=== PATIENT | female | born 1985 | race Caucasian/White ===

== ENCOUNTER → 2019-09-14 14:57 | Outpatient (REF) | payer OTHER, SELFPAY | LOC: ANHLAB 14:57 | PROVIDERS: PCP Family Medicine; Visit Provider Surgery Plastic and Reconstructive Surgery | DX: H02.64 Xanthelasma of left upper eyelid (principal) | CPT/HCPCS: 88305 ==

== ENCOUNTER 2020-01-02 09:34 | Outpatient (CLI) | payer OTHER, SELFPAY ==
[2020-01-02 18:54] LABS: SARS-CoV-2 RNA PCR Negative
== END 2020-01-02 09:35 | disposition home or self-care (01) ==
LOC: ANHCOVIDDT 09:34
PROVIDERS: PCP Family Medicine; Visit Provider Obstetrics & Gynecology
DX: Z01.812 Encounter for preprocedural laboratory examination (principal); Z20.828 Contact with and (suspected) exposure to other viral communicable diseases
CPT/HCPCS: 87635; C9803; U0003

== ENCOUNTER 2020-01-05 00:31 | Day surgery (SDC) | payer OTHER, SELFPAY ==
[2020-01-02 10:31] VITALS: BMI 29.2
--- NOTE | 2020-01-03 09:45 | PM.IMHP ---
H&P: HPI History of Present Illness Date/Time: 01/03/20 09:45 Chief complaint: Pelvic Pain Narrative: Norm Mulligan is a 34 year old female who is admitted for diagnostic laparoscopy. She has had continued chronic pelvic pain and dyspareunia. She has pain she is sitting she has intercourse in several she status post hysterectomy and ultrasound shows no obvious adnexal masses. Risks and benefits of this procedure reviewed including but not exclusive of , aspiration pneumonia, bleeding, transfusion, perforation injury to bowel, bladder, ureters, or other internal organs with need for open laparotomy. She received the ACOG handout entitled laparoscopy. She had all questions answered. She asked to proceed Review of Systems Review of Systems: All systems reviewed & are unremarkable except as noted in HPI and below PMFSH Social History Social History Smoking packs per day: 0.5 Smoking cigarettes per day: 10.0 Years smoked: 6 Smoking pack-years: 3.00 Smoking status: Current every day smoker Tobacco type: cigarettes Alcohol intake: never Spiritual care concerns: No Meds Home Medications and Allergies Home Medications Medication Instructions Recorded Confirmed Type No Home Medications 06/21/19 01/02/20 History Allergies Allergy/AdvReac Type Severity Reaction Status Date / Time codeine Allergy FLUSING Verified 01/02/20 10:32 Exam Const: General: no acute distress Eyes: General: appearance normal, both eyes and all related structures Neck: Neck: supple and no JVD Thyroid: thyroid normal Resp: Effort & Inspection: normal respiratory effort Auscultation: clear to auscultation bilaterally Cardio: Rate: regular rate Rhythm: regular rhythm GI: Inspection: non-distended GI Palp: Yes Soft to palpation, No Tenderness to palpation present (GI) and No Guarding due to palpation present (GI) Auscultation: normal bowel sounds : General: Yes bladder normal to inspection External Female Exam: normal external appearance Speculum Exam - Vagina: tenderness Speculum Exam - Cervix: Cervix absent Bimanual exam- vagina & uterus: uterus absent Bimanual Exam- Adnexa, other: tender Skin: General skin exam: no rashes or lesions noted Extrem: General: normal to inspection and no edema Psych: Mental Status: mental status grossly normal Affect: normal affect Assessment and Plan Additional Plan impression: Pelvic pain Plan: Diagnostic laparoscopy
[2020-01-05] VITALS (7 sets, daily range): BP systolic 117–124; BP diastolic 67–86; PULSE 83–130; RESP 14–21; TEMP 36.5–37.2; O2SAT 98–100
--- NOTE | 2020-01-05 06:30 | WPDHPUPDATE1 ---
History and Physical Update Update Date/Time: 01/05/20 06:30 History and Physical has been reviewed, including an updated exam of the patient. There are NO changes in the patient's condition. Risks, benefits, and alternatives have been discussed and questions answered. Patient agrees to proceed with procedure.
[2020-01-05] MEDS: LACTATED RINGERS 1,000 ML 30 ML IV CONT ×2 (08:51→10:44)
[2020-01-05] MEDS: ACETAMINOPHEN 500 MG TABLET 1000 MG PO (08:52)
[2020-01-05] MEDS: KETOROLAC 15 MG/ML VIAL (*BKC) IV PUSH (08:53)
--- NOTE | 2020-01-05 09:45 | P.PNAN_ITS ---
Anes - Initial Pre Proc Eval Procedure: Operation Date: 01/05/20 11:00 Proposed Procedures p Diagnostic Laparoscopy - Luis Garcia MD Date/Time: 01/05/20 09:45 Surgeon: Luis Garcia MD Pre Op Diagnosis: Pelvic Pain Patient Data Age: 34 Gender: F Height: 5 ft 5 in Weight: 79.83 kg Last Vital Signs Temp 98.9 F 01/05/20 08:54 Pulse 84 01/05/20 08:54 Resp 14 01/05/20 08:54 BP 121/80 01/05/20 08:54 Pulse Ox 100 01/05/20 08:54 Allergies Allergy/AdvReac Type Severity Reaction Status Date / Time codeine Allergy Severe Rash Verified 01/05/20 08:29 Home Medications Medication Instructions Recorded Confirmed Type hydrocodone-acetaminophen [[place]] 1 tablet PO Q4H PRN #20 tablet 01/05/20 Rx Patient hx anesthesia problems: none Family hx anesthesia problems: none PMFSH Past Medical History Medical History (Updated 01/05/20 @ 09:45 by Mango Ho MD) Healthy adult Social History Social History Smoking packs per day: 0.5 Smoking cigarettes per day: 10.0 Years smoked: 6 Smoking pack-years: 3.00 Smoking status: Current every day smoker Tobacco type: cigarettes Alcohol intake: never Spiritual care concerns: No Anes - Eval Final PreProcedure Day of Procedure 01/05/20 09:45 Patient weight: normal Heart: regular rate and rhythm Lungs: clear to auscultation Airway: Mallampati scale class II Neurological: alert and oriented Last oral intake: >/= 8 hours ASA classification: II Emergent: no Anesthetic plan: proceed Anesthesia type and monitoring: general ETT and standard monitoring Informed Consent: The patient's anesthetic plan and its attendant risks and benefits were discussed with the patient/family/POA. Questions were solicited and answers provided to the satisfaction of the patient/family/POA.
--- NOTE | 2020-01-05 10:35 | PM.PROC ---
Procedure Note - Detailed Date of procedure: 01/05/20 Pre-op diagnosis: Pelvic Pain Surgeon: Luis Garcia MD Postop diagnosis: Pelvic pain/ endometriosis/ pelvic adhesions Procedure: Laparoscopy/ destruction of endometriosis / lysis of adhesions Anesthesia: General endotracheal EBL: 5Cc Complications: None Findings: Absent uterus left ovary and tube absent right tube. Endometrial implants along the bladder edge and cul-de-sac. Adhesions from the colon to the left lateral sidewall Description of procedure: The patient was prepped draped in normal sterile fashion placed in the dorsal lithotomy position. Under excellent general trach anesthesia a sponge stick was placed in the vagina and the bladder drained of clear urine. Gloves were changed An infraumbilical incision was made. The Veress needle was passed in the abdomen. The abdomen was filled with CO2 gas [id number]. The 5mm trocar was advanced directly into the abdomen under direct visualization. No injury seen the patient was placed in Trendelenburg. A suprapubic incision was made in the 5mm trocar advanced under direct visualization assuring no injury. The right ovary appeared within normal limits the uterus and left ovary and tube were surgically absent. Adhesions were seen from the colon to the left lateral sidewall. These were sharply dissected freed. Areas of endometriosis were photo documented along the bladder and the uterus sacral ligaments. These were point cauterized at 35 w per 2nd with excellent desiccation. Irrigation was taken until clear. The raw surface areas on the left where the bowel was sharply dissected was covered with Interceed. Small amount of fluid was left to help the Interceed. No other abnormalities were seen. The lower site removed. The gas removed from abdomen. The upper site was removed. Incisions were closed with 4 O Monocryl. The patient was awakened. She went to speak recovery in satisfactory condition. All sponge, needle, instrument counts were correct. There were no immediate complications
== END 2020-01-05 12:26 | disposition home or self-care (01) ==
PROVIDERS: PCP Family Medicine; Visit Provider Obstetrics & Gynecology
PROC: (CPT 49320; principal; 2020-01-05 11:00)
DX: R10.2 Pelvic and perineal pain (principal); N80.0 Endometriosis of uterus; N80.8 Other endometriosis; N73.6 Female pelvic peritoneal adhesions (postinfective)
CPT/HCPCS: 58662; 36415; 86850; 86900; 86901; A9270; J0330; J1100; J1885; J2250; J2405; J2704; J3010; J7120

== ENCOUNTER → 2020-09-26 08:00 | Outpatient (REF) | payer OTHER, SELFPAY | LOC: ANHLAB 08:00 | PROVIDERS: PCP Family Medicine; Visit Provider Surgery Plastic and Reconstructive Surgery | DX: E75.5 Other lipid storage disorders (principal); H02.64 Xanthelasma of left upper eyelid | CPT/HCPCS: 88305 ==

== ENCOUNTER 2021-04-01 09:32 | Outpatient (CLI) | payer OTHER, SELFPAY | END 2021-04-01 09:33 | disposition home or self-care (01) | LOC: ANHSURGERY 09:37 | PROVIDERS: PCP Family Medicine; Visit Provider Obstetrics & Gynecology | DX: N83.201 Unspecified ovarian cyst, right side (principal); Z01.818 Encounter for other preprocedural examination | CPT/HCPCS: 36415; 86850; 86900; 86901 ==

== ENCOUNTER 2021-04-04 01:59 | Day surgery (SDC) | payer OTHER, SELFPAY ==
[2021-03-28 15:34] VITALS: BMI 28.6
--- NOTE | 2021-03-28 15:46 | PC.NURSE ---
Report to the Outpatient Waiting Room, entrance under the green pavilion located off [facility], at time 8:30AM__ on date _04/04/21 . OR Time: __10:30AM . - You and your visitor will be asked a series of questions to screen for COVID 19 for your protection. - A mask is required within the hospital. - Only one visitor is allowed at this time. Patient visitors will be guided where to wait when not with patient. Preoperative COVID Testing Requirements: No COVID Test needed if: (proof is required; if not received patient will have Rapid Test prior to entry) - Patient has received COVID Vaccine at least 14 days prior to procedure date or - Patient has positive COVID test result within last 90 days of surgery date. COVID Test needed if above criteria is not met If not COVID vaccinated a COVID test must be conducted within 72 hours of surgery and patient is asked to isolate self from time of testing until procedure. You will go to the [facility] for your COVID testing. The [facility] is located at the corner of [address] [facility]. COVID TESTING 04/01/21 @ 0935 You will only be called if COVID results are positive and your surgeon may reschedule your elective surgery date. Patients may have clear liquids (water, carbonated beverages, clear teas, apple juice) until 3 hours prior to surgery with a maximum of 20 ounces. - No food from midnight until time of surgery - Infants may have breast milk until 4 hours before surgery, formula 6 hours prior to surgery. - Children will be allowed to drink immediately following surgery. If applicable, please bring a bottle or sippy cup to assist with drinking. Juice, water, soda, and popsicles are readily available. For infants on formula, please bring formula the day of surgery. Pacifiers are allowed. Take the following medications with a SIP of water the morning of surgery: NONE Medications to discontinue per physician NONE Date to take last dose Please no make-up, nail croatian, hairspray, perfume, deodorant, or body powder the day of surgery. No jewelry (including any body piercings) or valuables the day of surgery, leave them at home. Please take a shower or bath the night before, or the morning of, surgery with an antibacterial soap. Wear comfortable, loose fitting clothing. Children are encouraged to wear pajamas. - Jewelry must be removed prior to entering the operating room. Rings and piercings that are not removed may be cut off. - The hospital will not accept responsibility for valuables. - Please leave all valuables, including medications, at home the day of surgery. If you are going home after surgery, a licensed ice cream truck driver must drive you home. - NO public transportation without another adult. - We recommend that an adult stay with you for 24 hours following discharge. - We also recommend that you do not drive, make important decision, drink alcoholic beverages, or take any drugs that were not prescribed by your health care provider for at least 24 hours after your discharge time. For Pediatric surgeries, we recommend two adults accompany the child home (only one inside the building at this time). Follow any additional instructions given to you from your surgeon. Telephone instructions given to ___PATIENT and asked if any additional questions and then verbalized understanding. Patient advised to call surgeon office or pre surgery nurse liaison [phone] if any additional questions.
--- NOTE | 2021-04-02 09:50 | PM.IMHP ---
H&P: HPI History of Present Illness Date/Time: 04/02/21 09:50 This is a 35-year-old 2 para 2 who is admitted for laparoscopy and right salpingo-oophorectomy. She has had pelvic pain discomfort and dyspareunia. She has had the left ovary removed before the past and she understands this will make her permanently menopausal. Risks and benefits reviewed including but not exclusive of , aspiration pneumonia, bleeding, transfusion, perforation injury to bowel, bladder, ureters, or other internal organs with the need for open laparotomy. She received the ACOG handout entitled laparoscopy. She had all questions answered. The changes medical with menopause were reviewed in great detail including psychologic and physiologic changes. She had all answers given and asked to proceed Chief Complaint: Pain and right ovarian cyst Review of Systems Review of Systems: All systems reviewed & are unremarkable except as noted in HPI and below PMFSH Past Medical History Medical History Healthy adult Surgical History Surgical History History of delivery Social History Social History Smoking packs per day: 0.5 Smoking cigarettes per day: 10.0 Years smoked: 10 Smoking pack-years: 5.00 Smoking status: Current every day smoker Tobacco type: cigarettes Alcohol intake: never Alcohol use details: SOCIALLY IN PAST Substance use: never Additional living arrangements comments: [facility] Spiritual care concerns: No Meds Home Medications and Allergies Home Medications Medication Instructions Recorded Confirmed Type No Home Medications 03/28/21 03/28/21 History Allergies Allergy/AdvReac Type Severity Reaction Status Date / Time hydrocodone AdvReac Nausea and Verified 03/28/21 15:33 Vomiting Exam Const: General: no acute distress Eyes: General: appearance normal, both eyes and all related structures Neck: Neck: supple and no JVD Thyroid: thyroid normal Resp: Effort & Inspection: normal respiratory effort Auscultation: clear to auscultation bilaterally Cardio: Rate: regular rate Rhythm: regular rhythm GI: Inspection: non-distended GI Palp: Yes Soft to palpation, No Tenderness to palpation present (GI) and No Guarding due to palpation present (GI) Auscultation: normal bowel sounds : External Female Exam: normal external appearance Speculum Exam - Vagina: normal appearance of the vagina Speculum Exam - Cervix: Cervix absent Bimanual exam- vagina & uterus: uterus absent Bimanual Exam- Adnexa, other: Adnexal mass present on the right tender Skin: General skin exam: no rashes or lesions noted Extrem: General: normal to inspection and no edema Psych: Mental Status: mental status grossly normal Affect: normal affect Assessment and Plan Additional Plan Impression: Complex right ovarian cyst in a patient status post hysterectomy and left salpingo-oophorectomy Plan: Laparoscopic right salpingo-oophorectomy
--- NOTE | 2021-04-04 07:11 | WPDHPUPDATE1 ---
History and Physical Update Update Date/Time: 04/04/21 07:11 History and Physical has been reviewed, including an updated exam of the patient. There are NO changes in the patient's condition. Risks, benefits, and alternatives have been discussed and questions answered. Patient agrees to proceed with procedure.
[2021-04-04 08:40] VITALS: BP 122/70; PULSE 122; RESP 16; TEMP 36.4; O2SAT 97
--- NOTE | 2021-04-04 09:02 | P.PNAN_ITS ---
Anes - Initial Pre Proc Eval Procedure: Operation Date: 04/04/21 10:30 Proposed Procedures p Laparoscopic Right Salpingo-Oophorectomy - Luis Garcia MD Date/Time: 04/04/21 09:02 Surgeon: Luis Garcia MD Pre Op Diagnosis: right ovarian cyst Patient Data Age: 35 Gender: F Height: 1.65 m Weight: 80.2 kg Last Vital Signs Temp 36.4 C L 04/04/21 08:40 Pulse 122 H 04/04/21 08:40 Resp 16 04/04/21 08:40 BP 122/70 04/04/21 08:40 Pulse Ox 97 04/04/21 08:40 Allergies Allergy/AdvReac Type Severity Reaction Status Date / Time hydrocodone AdvReac Nausea and Verified 04/04/21 08:43 Vomiting Home Medications Medication Instructions Recorded Confirmed Type oxycodone-acetaminophen [Percocet] 1 tablet PO Q4H PRN #20 tablet 04/04/21 Rx Patient hx anesthesia problems: none Family hx anesthesia problems: none Results Review: All pre-operative results and documents have been reviewed as part of the pre-operative evaluation. [facility] Past Medical History Medical History Obesity Smoker Surgical History Surgical History (Updated 04/04/21 @ 09:02 by Luis Zhao MD) H/O: hysterectomy History of delivery Social History Social History Smoking packs per day: 0.5 Smoking cigarettes per day: 10.0 Years smoked: 10 Smoking pack-years: 5.00 Smoking status: Current every day smoker Tobacco type: cigarettes Alcohol intake: never Alcohol use details: SOCIALLY IN PAST Substance use: never Living arrangements: with family Additional living arrangements comments: HUSB Spiritual care concerns: No Anes - Eval Final PreProcedure Day of Procedure 04/04/21 09:02 Patient weight: obese Heart: regular rate and rhythm Lungs: clear to auscultation Airway: Mallampati scale class II Neurological: alert and oriented Last oral intake: >/= 8 hours ASA classification: II Emergent: no Anesthetic plan: proceed Anesthesia type and monitoring: general ETT and standard monitoring Results Review: All pre-operative results and documents have been reviewed as part of the pre-operative evaluation. Informed Consent: The patient's anesthetic plan and its attendant risks and benefits were discussed with the patient/family/POA. Questions were solicited and answers provided to the satisfaction of the patient/family/POA.
[2021-04-04] MEDS: ACETAMINOPHEN 500 MG TABLET 1000 MG PO (09:10)
[2021-04-04] MEDS: SCOPOLAMINE 1.5 MG PATCH TRANSDERM (09:11)
[2021-04-04] MEDS: LACTATED RINGERS 1,000 ML 30 ML IV CONT ×2 (09:27→11:18)
[2021-04-04] MEDS: KETOROLAC 15 MG/ML VIAL (*BKC) IV PUSH (09:28)
--- NOTE | 2021-04-04 11:12 | W.PM.PROC2 ---
Procedure Note - Detailed Date of Procedure 04/04/21 Pre-op Diagnosis right ovarian cyst Post-op Diagnosis same Procedure Performed Laparoscopic right salpingo-oophorectomy and destruction of endometriosis lysis of adhesions Surgeon Luis Garcia MD Anesthesia general Indications 35-year-old status post hysterectomy and left salpingo-oophorectomy admitted for laparoscopy and right salpingo-oophorectomy secondary complex ovarian cyst and pain Findings Absent left ovary and tube absent uterus complex right ovary and tube Description of Procedure The patient was prepped draped in the normal sterile fashion placed in the dorsal lithotomy position. Under excellent general trach anesthesia weighted speculum placed in posterior fornix of vagina and the sponge stick placed in the vagina the bladder drained of about 350cc of clear urine the weighted speculum was removed. Gloves were changed An infraumbilical incision made the Veress needle passed in the abdomen abdomen filled with CO2 gas to 15mm Hg. The 5mm trocar advanced in the abdomen downside visualized no injury seen. Patient placed in Trendelenburg and a suprapubic incision made. The 5mm trocar advanced under direct visualization assuring no injury. A right lower quadrant incision made the 10mm trocar advanced under direct visualization. Complex right ovarian cyst was seen pelvic adhesions were seen and these were sharply dissected using sharp dissection grasping and port placing on stretch. Once this was clear the infundibulopelvic structure on the right was clamped, burned, cut and the ovary and tube placed in an Endo-Catch removed through the right lower quadrant. Small areas of endometriosis were seen and powder burn spots photo documentation taken prior these were point cauterized at 35 w per 2nd. Irrigation undertaken to clear. Photo documentation of the appendix and gallbladder were undertaken and the lower sites removed. The gas removed from the abdomen the incisions closed with 4 Monocryl and glue. The patient was awakened went recovery in satisfactory condition. All sponge, needle, instrument counts were correct Estimated Blood Loss 5 Drains No Packing No Pathology yes Complications No immediate complications Condition stable Disposition PACU
[2021-04-04 11:18] VITALS: BP 104/73; PULSE 106; RESP 16; TEMP 36.3; O2SAT 100
[2021-04-04 11:33] VITALS: BP 113/67; PULSE 92; RESP 15; O2SAT 100
[2021-04-04 11:46] VITALS: BP 112/66; PULSE 79; RESP 12; O2SAT 100
[2021-04-04 11:56] VITALS: BP 119/67; PULSE 82; RESP 12
[2021-04-04 12:26] VITALS: BP 108/67; PULSE 84; RESP 12
== END 2021-04-04 12:30 | disposition home or self-care (01) ==
PROVIDERS: PCP Family Medicine; Visit Provider Obstetrics & Gynecology
PROC: (CPT 49320; principal; 2021-04-04 10:30)
DX: N83.01 Follicular cyst of right ovary (principal); N80.3 Endometriosis of pelvic peritoneum; Z90.710 Acquired absence of both cervix and uterus; F17.210 Nicotine dependence, cigarettes, uncomplicated; R10.2 Pelvic and perineal pain; N94.10 Unspecified dyspareunia
CPT/HCPCS: 58661; 58662; 88305; A9270; J1885; J2250; J3010; J7120

== ENCOUNTER 2023-09-22 08:54 | Outpatient (CLI) | payer OTHER, SELFPAY ==
--- NOTE | 2023-09-22 11:15 | NEURO_ITS ---
Impression: # Complains of pain/numbness in upper extremities. Non-diabetic. # Left ulnar neuropathy across the elbow. # No Carpal Tunnel Syndrome. # Normal needle/EMG exam. # Note patient does have ulnar to median cross innervation. Nerve Conduction Studies Anti Sensory Summary Table Stim Site NR Peak (ms) P-T Amp (?V) Site1 Site2 Delta-P (ms) Dist (cm) Maverick (m/s) Left Median Anti Sensory (2-3nd Digit) Wrist 2.7 65.4 Wrist 2-3nd Digit 2.7 14.0 52 Wrist 2.8 82.6 Wrist 2-3nd Digit 2.7 14.0 52 Right Median Anti Sensory (2-3nd Digit) Wrist 2.9 78.2 Wrist 2-3nd Digit 2.9 14.0 48 Wrist 2.7 80.0 Wrist 2-3nd Digit 2.9 14.0 48 Left Radial Anti Sensory (Base 1st Digit) Wrist 1.8 45.1 Wrist Base 1st Digit 1.8 0.0 Right Radial Anti Sensory (Base 1st Digit) Wrist 2.2 24.3 Wrist Base 1st Digit 2.2 0.0 Left Ulnar Anti Sensory (5th Digit) Wrist 2.7 67.9 Wrist 5th Digit 2.7 14.0 52 Right Ulnar Anti Sensory (5th Digit) Wrist 2.7 49.4 Wrist 5th Digit 2.7 14.0 52 Motor Summary Table Stim Site NR Onset (ms) O-P Amp (mV) Site1 Site2 Delta-0 (ms) Dist (cm) Maverick (m/s) Left Median Motor (Abd Poll Brev) Wrist 2.9 4.6 Elbow Wrist 5.1 30.0 59 Elbow 8.0 2.0 Right Median Motor (Abd Poll Brev) Wrist 3.1 5.2 Elbow Wrist 5.3 31.0 58 Elbow 8.4 3.1 Left Ulnar Motor (Abd Dig Minimi) Wrist 2.6 6.1 A Elbow Wrist 5.7 29.0 51 A Elbow 8.3 5.9 B Elbow Wrist 4.1 24.0 59 B Elbow 6.7 5.5 Right Ulnar Motor (Abd Dig Minimi) Wrist 2.5 7.5 A Elbow Wrist 5.2 31.0 60 A Elbow 7.7 6.8 F Wave Studies NR F-Lat (ms) L-R F-Lat (ms) Left Median (Mrkrs) (Abd Poll Brev) 26.64 0.16 Right Median (Mrkrs) (Abd Poll Brev) 26.80 0.16 Left Ulnar (Mrkrs) (Abd Dig Min) 28.09 1.02 Right Ulnar (Mrkrs) (Abd Dig Min) 27.08 1.02 EMG Side Muscle Nerve Root Ins Act Fibs Amp Dur Recrt Comment Right 1stDorInt Ulnar C8-T1 Nml Nml Nml Nml Nml Right Ext Indicis Radial (Post Int) C7-8 Nml Nml Nml Nml Nml Right Ext Digitorum Radial (Post Int) C7-8 Nml Nml Nml Nml Nml Right BrachioRad Radial C5-6 Nml Nml Nml Nml Nml Right PronatorTeres Median C6-7 Nml Nml Nml Nml Nml Right Abd Poll Brev Median C8-T1 Nml Nml Nml Nml Nml Right ABD Dig Min Ulnar C8-T1 Nml Nml Nml Nml Nml Left 1stDorInt Ulnar C8-T1 Nml Nml Nml Nml Nml Left Ext Indicis Radial (Post Int) C7-8 Nml Nml Nml Nml Nml Left Ext Digitorum Radial (Post Int) C7-8 Nml Nml Nml Nml Nml Left BrachioRad Radial C5-6 Nml Nml Nml Nml Nml Left PronatorTeres Median C6-7 Nml Nml Nml Nml Nml Left Abd Poll Brev Median C8-T1 Nml Nml Nml Nml Nml Left ABD Dig Min Ulnar C8-T1 Nml Nml Nml Nml Nml MTDD
== END 2023-09-22 08:55 | disposition home or self-care (01) ==
LOC: ANHNEURO 08:55
PROVIDERS: PCP Family Medicine; Visit Provider Orthopaedic Surgery
DX: G56.22 Lesion of ulnar nerve, left upper limb (principal)
CPT/HCPCS: 95886; 95911

== ENCOUNTER 2024-01-05 00:52 | Day surgery (SDC) | payer OTHER, SELFPAY ==
[2023-12-29 15:19] VITALS: BMI 31.4
--- NOTE | 2023-12-29 15:28 | PC.NURSE ---
Addendum entered by Goldy Srivastava RN 12/30/23 14:44: Arrive at 0830 for a 1030 surgery. Original Note: Report to the Outpatient Waiting Room, entrance under the green pavilion located off [facility], at 1230 on 01/05/24. Planned Procedure Time: 1030. Time changes happen often and if your time is changed the preop area will call you the afternoon before. - You and your visitor will be asked to self-screen and do not enter if you have any COVID symptoms. - A mask is optional within the hospital at this time. Patients may have clear liquids (water, carbonated beverages, clear teas, apple juice) until 3 hours prior to surgery with a maximum of 20 ounces. - No food from midnight until time of surgery Take the following medications with a SIP of water the morning of surgery: n/a DO NOT STOP ANY OF YOUR OTHER PRESCRIPTION MEDICATIONS PRIOR TO SURGERY ?EXCEPT THE FOLLOWING Medications to discontinue per physician n/a Date to take last dose n/a Please no make-up, nail zambian, hairspray, perfume, deodorant, or body powder the day of surgery. No jewelry (including any body piercings) or valuables the day of surgery, leave them at home. Please take a shower or bath the night before, or the morning of, surgery with an antibacterial soap. Wear comfortable, loose fitting clothing. - Jewelry must be removed prior to entering the operating room. Rings and piercings that are not removed may be cut off. - The hospital will not accept responsibility for valuables. - Please leave all valuables, including medications, at home the day of surgery. If you are going home after surgery, a licensed motor vehicle escort driver must drive you home. - NO public transportation without another adult if you receive anesthesia. - We recommend that an adult stay with you for 24 hours following discharge. - We also recommend that you do not drive, make important decision, drink alcoholic beverages, or take any drugs that were not prescribed by your health care provider for at least 24 hours after your discharge time. Follow any additional instructions given to you from your surgeon. If you or anyone in your household have experienced Covid symptoms in the past week, please notify your surgeon or the nurse liaison at the phone number below for possible testing. Telephone instructions given to patient and asked if any additional questions and then verbalized understanding. Patient advised to call surgeon office or pre surgery nurse liaison [phone] if any additional questions.
--- NOTE | 2024-01-04 07:58 | PM.IMHP ---
H&P: HPI History of Present Illness Date/Time: 01/04/24 07:58 Chief Complaint: Patient presents with tingling in all fingers of her right hand. She has carpal and cubital tunnel syndrome. She would like to consider surgical intervention. Review of Systems Musculoskeletal: Musculoskeletal: Reports arthralgias and Reports joint swelling [facility] Surgical History Surgical History H/O: hysterectomy History of delivery Family History Family History (Updated 11/30/23 @ 08:14 by ZACK Gomez) Father Acute myocardial infarction Mother Acute myocardial infarction Heart disease Social History Social History (Updated 11/30/23 @ 08:15 by ZACK Gomez) Smoking packs per day: 0.5 Smoking cigarettes per day: 10.0 Years smoked: 8 Smoking pack-years: 4.00 Smoking status: Current every day smoker Tobacco type: cigarettes Second hand tobacco smoke exposure: Yes Alcohol intake: never Alcohol use details: SOCIALLY IN PAST Substance use: never Substance use type: does not use Do You Feel Safe in your Home?: Yes Lack of Transportation: No Lack of Food: Never True Current Housing: I Have Housing Concerned About Future Housing: No Difficulty Paying Gas/Electric Bills: No Difficulty Paying for Meds: No Currently Unemployed: No Education: High School Diploma/GED Difficulty w/ Childcare or Family Care: No Living arrangements: with family Additional living arrangements comments: [facility] Occupation/Education: occupation 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 She also has a positive Phalen's the cubital tunnel compression test on the right. She she has numbness and tingling in her hands quite frequently. And has pain with motion. Eyes: General: appearance normal, both eyes and all related structures Neck: Neck: supple Resp: Effort & Inspection: normal respiratory effort Cardio: Rate: regular rate Rhythm: regular rhythm Assessment and Plan Assessment and plan (1) Cubital tunnel syndrome, bilateral: Code(s): G56.23 - Lesion of ulnar nerve, bilateral upper limbs Status: Acute Assessment and Plan: Patient has carpal and cubital tunnel right. She would like to proceed with surgical intervention. She has failed conservative treatment he would like surgical release. She understands it's not 100% effective. I discussed risks benefits limitations and alternatives with the patient in detail she would like to proceed will proceed per her request. (2) Carpal tunnel syndrome of right wrist: Code(s): G56.01 - Carpal tunnel syndrome, right upper limb Status: Acute
--- NOTE | 2024-01-05 08:46 | WPDHPUPDATE1 ---
History and Physical Update Update Date/Time: 01/05/24 08:46 History and Physical has been reviewed, including an updated exam of the patient. There are NO changes in the patient's condition. Risks, benefits, and alternatives have been discussed and questions answered. Patient agrees to proceed with procedure. Patient has decided just to proceed with the cubital tunnel release, Right arm Will NOT do carpal tunnel release as well..
--- NOTE | 2024-01-05 08:53 | WPDANESEPPF ---
Anes - Initial Pre Proc Eval Procedure: Operation Date: 01/05/24 10:30 Proposed Procedures p Right Cubital Tunnel Release - Gary Cummins MD Date/Time: 01/05/24 08:53 Surgeon: Gary Cummins MD Pre Op Diagnosis: Right Cubital Tunnel Syndrome Patient Data Age: 38 Gender: F Height: 1.65 m Weight: 85.73 kg Allergies Allergy/AdvReac Type Severity Reaction Status Date / Time hydrocodone AdvReac Unknown Nausea and Verified 01/05/24 08:57 Vomiting Home Medications Medication Instructions Recorded Confirmed Type estradiol 1 mg/gram (0.1 %) 1 packet transdermal .COMPLEX 08/26/23 12/29/23 History transdermal gel packet Patient hx anesthesia problems: none Family hx anesthesia problems: none Results Review: All pre-operative results and documents have been reviewed as part of the pre-operative evaluation. [facility] Surgical History Surgical History H/O: hysterectomy History of delivery Family History Family History Father Acute myocardial infarction Mother Acute myocardial infarction Heart disease Social History Social History Smoking packs per day: 0.5 Smoking cigarettes per day: 10.0 Years smoked: 8 Smoking pack-years: 4.00 Smoking status: Current every day smoker Tobacco type: cigarettes Second hand tobacco smoke exposure: Yes Alcohol intake: never Alcohol use details: SOCIALLY IN PAST Substance use: never Substance use type: does not use Do You Feel Safe in your Home?: Yes Lack of Transportation: No Lack of Food: Never True Current Housing: I Have Housing Concerned About Future Housing: No Difficulty Paying Gas/Electric Bills: No Difficulty Paying for Meds: No Currently Unemployed: No Education: High School Diploma/GED Difficulty w/ Childcare or Family Care: No Living arrangements: with family Additional living arrangements comments: [place] Occupation/Education: occupation 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[employer] Gender identity (if verbalized by the patient): Female Spiritual care concerns: No Anes - Eval Final PreProcedure Day of Procedure 01/05/24 08:53 Patient weight: overweight Heart: regular rate and rhythm Lungs: clear to auscultation Airway: Mallampati scale class III Neurological: alert and oriented Last oral intake: >/= 8 hours ASA classification: II Emergent: no Anesthetic plan: proceed Anesthesia type and monitoring: general LMA and standard monitoring Results Review: All pre-operative results and documents have been reviewed as part of the pre-operative evaluation. Pt active smoker, 1/2 ppd for several years, smoked at 7 am today. Informed Consent: The patient's anesthetic plan and its attendant risks and benefits were discussed with the patient/family/POA. Questions were solicited and answers provided to the satisfaction of the patient/family/POA.
[2024-01-05] MEDS: ACETAMINOPHEN 500 MG TABLET 1000 MG PO (09:00)
[2024-01-05] MEDS: LACTATED RINGERS 1,000 ML 30 ML IV CONT (09:17)
[2024-01-05] MEDS: KETOROLAC 15 MG/ML VIAL (*BKC) IV PUSH (09:18)
[2024-01-05 09:25] VITALS: BP 126/78; PULSE 85; RESP 16; TEMP 36.5; O2SAT 100
[2024-01-05] MEDS: ceFAZolin 2 GM/D5W 50 ML 2 GM/50 ML BAG IVPB (09:32)
[2024-01-05] MEDS: ceFAZolin SODIUM 1 GM VIAL IRRIGATION (09:56)
--- NOTE | 2024-01-05 10:02 | P.OP_ITS ---
Procedure Note - Detailed Date of Procedure 01/05/24 Pre-op Diagnosis Right Cubital Tunnel Syndrome Post-op Diagnosis Same Procedure Performed Release right cubital tunnel Surgeon Gary Cummins MD Investigation Clerk Maira Anesthesia General Description of Procedure Patient brought to operating room 7. General anesthetic was administered. She was sterilely prepped in the usual manner. Longitudinal incision made just over the cubital tunnel. Dissection carried down to the fascia of the tight cubital tunnel. This was released from the epicondyle throughout the cubital tunnel. At this point the nerve was noted to be free and not compressed. The arm was put through a full range of motion. No subluxation was noted. The wounds irrigated, hemostasis obtained and closed with the 2-0 Vicryl and 3-0 Prolene. A sterile dressing applied patient left the operating was satisfactory condi tion. Estimated Blood Loss 10 Drains No Packing No Pathology None sent Complications No immediate complications Condition Stable Disposition PACU [facility] Billing Surgery - Charge Forward: Surgery Billing ([id number] Cubital Tunnel Release)
[2024-01-05 10:16] VITALS: BP 116/71; PULSE 92; RESP 16; O2SAT 98
--- NOTE | 2024-01-05 10:30 | SUR.PHASEII ---
Per patient she has taken oxycodone in the past with no allergic reaction.
[2024-01-05] MEDS: oxyCODONE HCL (*CRX) 5 MG TAB IR PO (10:35)
[2024-01-05 10:46] VITALS: BP 111/60; PULSE 79; RESP 20
== END 2024-01-05 10:58 | disposition home or self-care (01) ==
PROVIDERS: PCP Family Medicine; Visit Provider Orthopaedic Surgery
PROC: (CPT 64721; principal; 2024-01-05 10:30)
DX: G56.21 Lesion of ulnar nerve, right upper limb (principal); G56.01 Carpal tunnel syndrome, right upper limb; Z98.890 Other specified postprocedural states; F12.90 Cannabis use, unspecified, uncomplicated; Z82.49 Family history of ischemic heart disease and other diseases of the circulatory system
CPT/HCPCS: 64718; A4565; A9270; J0690; J1885; J2250; J2405; J2704; J3010; J7120

== ENCOUNTER 2024-01-19 09:54 | Emergency (ER) | payer OTHER, SELFPAY ==
--- NOTE | ~2024-01-19 | XR_ITS ---
Right elbow Technique: AP, oblique, and lateral views were obtained. Clinical History: Postoperative infection Findings: No acute fracture or dislocation is seen. Osseous alignment is anatomic. Joint spaces are p reserved. There is no displacement of the fat pads, and soft tissues are unremarkable. Impression: Unremarkable radiographs. Reviewed, dictated and finalized at location . Impression: Unremarkable radiographs.
[2024-01-19 10:07] VITALS: BP 116/79; PULSE 85; RESP 17; TEMP 36.8; O2SAT 100
--- NOTE | 2024-01-19 10:17 | ED.UPPEXIN ---
HPI - Extremity Injury (Upper) General Chief Complaint: Extremity Injury, Upper Stated Complaint: ?infected incision Time Seen by Provider: 01/19/24 09:59 History of Present Illness HPI narrative: 38-year-old female presents to the emergency department with concerns for postoperative infection or right elbow. Patient states on 01/05/2024 she underwent release of her cubital tunnel by Dr. Cummins. States she has been healing well until she noticed redness, pain and swelling 2 days ago. States the symptoms worsened which prompted her to come to the ER today. She has or stitches in place and states she is scheduled to see Dr. Cummins tomorrow to get these removed in for follow-up. She denies fever, nausea or vomiting, difficulty with range of motion of her elbow, numbness or paresthesias. Related Data Home Medications Medication Instructions Recorded Confirmed estradiol 1 mg/gram (0.1 %) 1 packet transdermal .COMPLEX 08/26/23 01/05/24 transdermal gel packet Allergies Allergy/AdvReac Type Severity Reaction Status Date / Time hydrocodone AdvReac Unknown Nausea and Verified 01/19/24 10:07 Vomiting Review of Systems Review of Systems: All systems reviewed & are unremarkable except as noted in HPI and below PMFSH Surgical History Surgical History H/O: hysterectomy History of delivery Family History Family History Father Acute myocardial infarction Mother Acute myocardial infarction Heart disease Social History Social History Smoking packs per day: 0.5 Smoking cigarettes per day: 10.0 Years smoked: 8 Smoking pack-years: 4.00 Smoking status: Current every day smoker Tobacco type: cigarettes Second hand tobacco smoke exposure: Yes Alcohol intake: never Alcohol use details: SOCIALLY IN PAST Substance use: never Substance use type: does not use Do You Feel Safe in your Home?: Yes Lack of Transportation: No Lack of Food: Never True Current Housing: I Have Housing Concerned About Future Housing: No Difficulty Paying Gas/Electric Bills: No Difficulty Paying for Meds: No Currently Unemployed: No Education: High School Diploma/GED Difficulty w/ Childcare or Family Care: No Living arrangements: with family Additional living arrangements comments: [facility] Occupation/Education: occupation 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 HEAD: Normocephalic, atraumatic. EYES: PERRLA and EOMI. ENT: Nares clear, no rhinorrhea or epistaxis. Mucous membranes moist. NECK: Supple. CHEST: Clear to auscultation. No respiratory distress. HEART: Regular rate and rhythm. No murmur heard. Normal peripheral pulses. ABDOMEN: Soft, nontender, nondistended, normal active bowel sounds. EXTREMITIES: Normal range of motion. No edema. SKIN: Incision over the right cubital tunnel with a continuous stitch in place. No wound dehiscence or purulence. There is surrounding warmth and erythema to the incision. No induration or fluctuation, no crepitus or vesicles. NEURO: No focal deficits. Alert and oriented x3 Course Vital Signs Vital signs: Vital Signs Temperature 98.3 F 01/19/24 10:07 Pulse Rate 85 01/19/24 10:07 Respiratory Rate 17 01/19/24 10:07 Blood Pressure 116/79 01/19/24 10:07 Pulse Oximetry 100 01/19/24 10:07 Oxygen Delivery Room Air 01/19/24 10:07 Temperature 97.1 F L 01/19/24 11:00 Pulse Rate 74 01/19/24 11:00 Respiratory Rate 16 01/19/24 11:00 Blood Pressure 125/74 01/19/24 11:00 Pulse Oximetry 100 01/19/24 11:00 Oxygen Deliv
[2024-01-19 11:00] VITALS: BP 125/74; PULSE 74; RESP 16; TEMP 36.2; O2SAT 100
[2024-01-19 11:03] LABS: Basophils Percent Auto 0.4 % (0.2-1.2); Eosinophils Absolute Auto 0.1 K/mm3 (0-0.3); Eosinophils Percent Auto 1.7 % (0-4.4); Hematocrit 41.3 % (37.0-47.0); Immature Granulocyte Absolute 0.02 K/mm3 (0.00-0.031); Immature Granulocyte Percent A 0.3 % (0-0.5); Lymphocytes Absolute Auto 1.99 K/mm3 (0.9-3.2); Lymphocytes Percent Auto 27.4 % (18.3-44.2); Mean Corpuscular HGB Conc 33.9 g/dl (32-36); Mean Corpuscular Hemoglobin 32.8 pg (26-34); Mean Corpuscular Volume 96.7 fl (80-100); Mean Platelet Volume 9.8 fl (7.4-10.4); Monocytes Absolute Auto 0.5 K/mm3 (0.1-0.6); Monocytes Percent Auto 6.7 % (2.6-8.5); Neutrophils Absolute Auto 4.6 K/mm3 (1.3-6.7); Neutrophils Percent Auto 63.5 % (45.5-73.1); Platelet Count Result 187 k/mm3 (150-375); Red Blood Count 4.27 M/mm3 (4.2-5.4); Red Cell Distribution Width 12.9 % (11.5-14.5); White Blood Count 7.3 K/mm3 (4.5-10.0)
[2024-01-19 11:18] LABS: Anion Gap 9 mmol/L (4-12); Blood Urea Nitrogen 7 mg/dL (7-17); CRP 0.6 mg/dL (<1.0); Carbon Dioxide 29 mmol/L (22-30); Chloride 104 mmol/L (98-107); Estimated CRCL calculation 114 ml/min; Estimated Glomerular Filt Rate > 60; Glucose 91 mg/dL (65-110); Potassium 3.9 mmol/L (3.4-5.0); Sodium 142 mmol/L (137-145)
[2024-01-19 11:36] LABS: Erythrocyte Sedimentation Rate 16 mm/hr (0-20)
[2024-01-19] MEDS: CEPHALEXIN 500 MG CAPSULE PO (11:50)
[2024-01-19 11:53] VITALS: BP 126/88; PULSE 79; RESP 18; O2SAT 99
[2024-01-19 12:09] VITALS: BP 129/74; PULSE 80; RESP 16; TEMP 36.2; O2SAT 100
== END 2024-01-19 12:10 | disposition home or self-care (01) ==
PROVIDERS: Emergency Provider Physician Assistant; PCP Family Medicine
DX: L03.113 Cellulitis of right upper limb (principal); T81.41XA Infection following a procedure, superficial incisional surgical site, initial encounter; M25.521 Pain in right elbow; G89.18 Other acute postprocedural pain; Z90.710 Acquired absence of both cervix and uterus; F17.210 Nicotine dependence, cigarettes, uncomplicated
CPT/HCPCS: 15853; 36415; 73080; 80048; 85025; 85652; 86140; 99283; A9270

== ENCOUNTER 2024-03-20 01:01 | Day surgery (SDC) | payer OTHER, SELFPAY ==
--- NOTE | 2024-03-09 11:39 | SUR.PREOP ---
Report to the Outpatient Waiting Room, entrance under the green pavilion located off [facility], at time _0600_ on date _03/20/2024_. Planned Procedure Time: _0730_.? Time changes happen often and if your time is changed the preop area will call you the afternoon before. - You and your visitor will be asked to self-screen and do not enter if you have any COVID symptoms. Please call surgeon if you need to reschedule. - A mask is optional within the hospital at this time. Patients may have clear liquids (water, carbonated beverages, clear teas, apple juice) until 3 hours prior to surgery with a maximum of 20 ounces. - No food from midnight until time of surgery and no smoking - Infants may have breast milk until 4 hours before surgery, formula 6 hours prior to surgery. - Children will be allowed to drink immediately following surgery.? If applicable, please bring a bottle or sippy cup to assist with drinking. Juice, water, soda, and popsicles are readily available.? For infants on formula, please bring formula the day of surgery.? Pacifiers are allowed. Take only the following medications with a SIP of water on the morning of surgery: _NA_ DO NOT STOP ANY OF YOUR OTHER PRESCRIPTION MEDICATIONS PRIOR TO SURGERY EXCEPT THE FOLLOWING Medications to discontinue per physician _NA_ Date to take last dose_NA_ Please no make-up, nail korean, hairspray, perfume, deodorant, or body powder the day of surgery.? No jewelry (including any body piercings) or valuables the day of surgery, leave them at home.? Please take a shower or bath the night before, or the morning of, surgery with an antibacterial soap.? Wear comfortable, loose fitting clothing.? Children are encouraged to wear pajamas. - Jewelry must be removed prior to entering the operating room.? Rings and piercings that are not removed may be cut off. - The hospital will not accept responsibility for valuables.? - Please leave all valuables, including medications, at home the day of surgery. If you are going home after surgery, a licensed owner operator tanker truck driver must drive you home.? - NO public transportation without another adult if you receive anesthesia. - We recommend that an adult stay with you for 24 hours following discharge. - We also recommend that you do not drive, make important decision, drink alcoholic beverages, or take any drugs that were not prescribed by your health care provider for at least 24 hours after your discharge time. For Pediatric surgeries, we recommend two adults accompany the child home. Follow any additional instructions given to you from your surgeon. Telephone instructions given to _Norm_and asked if any additional questions and then verbalized understanding. Patient advised to call surgeon office or pre surgery nurse liaison [phone] if any additional questions.
[2024-03-09 11:50] VITALS: BMI 31.6
--- NOTE | 2024-03-16 09:57 | P.HP_ITS ---
H&P: HPI History of Present Illness Date/Time: 03/16/24 09:57 Chief Complaint: Patient has carpal tunnel syndrome right. She has numbness and tingling and pain has failed conservative treatment. She has a positive EMG. She would like to consider surgical release. Patient has secondary complaint is cubital tunnel syndrome on the left. She would like that released as well she has done well over the cubital tunnel syndrome release on the right. Review of Systems Musculoskeletal: Musculoskeletal: Reports arthralgias, Reports joint swelling and Reports stiffness PMF Past Medical History Medical History (Updated 01/20/24 @ 08:40 by ZACK Gomez) Cubital tunnel syndrome, bilateral Surgical History Surgical History H/O: hysterectomy History of delivery Family History Family History Father Acute myocardial infarction Mother Acute myocardial infarction Heart disease Social History Social History (Updated 01/20/24 @ 08:40 by ZACK Gomez) Smoking packs per day: 0.5 Smoking cigarettes per day: 10.0 Years smoked: 8 Smoking pack-years: 4.00 Smoking status: Current every day smoker Tobacco type: cigarettes Second hand tobacco smoke exposure: No Alcohol intake: never Alcohol use details: SOCIALLY IN PAST Substance use: never Substance use type: does not use Do You Feel Safe in your Home?: Yes Lack of Transportation: No Lack of Food: Never True Current Housing: I Have Housing Concerned About Future Housing: No Difficulty Paying Gas/Electric Bills: No Difficulty Paying for Meds: No Currently Unemployed: No Education: High School Diploma/GED Difficulty w/ Childcare or Family Care: No Living arrangements: with family Additional living arrangements comments: and children Occupation/Education: occupation 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 She has a positive Phalen's carpal tunnel compression test. She has increased 2 point discrimination. She has pain with the motion of her wrist. Examination of her left cubital tunnel demonstrates positive cubital tunnel compression test and Phalen's test with the numbness and tingling in her 4th and 5th fingers. Eyes: General: appearance normal, both eyes and all related structures Neck: Neck: supple Resp: Effort & Inspection: normal respiratory effort Cardio: Rate: regular rate Rhythm: regular rhythm Elbow X-Ray 01/19/24 Wrist X-Ray 08/26/23 Orthopedics Result Report 08/26/23 Assessment and Plan Assessment and plan (1) Cubital tunnel syndrome, bilateral: Code(s): G56.23 - Lesion of ulnar nerve, bilateral upper limbs Status: Acute Assessment and Plan: Patient is status post cubital tunnel release right. She has numbness and tingling for the 5th fingers would like to proceed with cubital tunnel release left. I discussed treatment options with her risks benefits limitations and alternatives in detail. Will proceed per her request. She knows was no 100% gu clarisse that she will get all of her function back. (2) Carpal tunnel syndrome of right wrist: Code(s): G56.01 - Carpal tunnel syndrome, right upper limb Status: Acute Assessment and Plan: She also has carpal tunnel syndrome on the right. She would like to proceed with carpal tunnel release I disc. I discussed risks benefits limitations and alternatives in detail.
[2024-03-20] VITALS (8 sets, daily range): BP systolic 107–130; BP diastolic 67–93; PULSE 71–105; RESP 12–15; TEMP 36.3; O2SAT 97–100; BMI 32.2
[2024-03-20] MEDS: ACETAMINOPHEN 500 MG TABLET 1000 MG PO (06:29)
[2024-03-20] MEDS: LACTATED RINGERS 1,000 ML 30 ML IV CONT (06:30)
[2024-03-20] MEDS: KETOROLAC 15 MG/ML VIAL (*BKC) IV PUSH (06:30)
--- NOTE | 2024-03-20 06:39 | P.PNAN_ITS ---
Anes - Initial Pre Proc Eval Procedure: Operation Date: 03/20/24 07:30 Proposed Procedures p Right Carpal Tunnel Release and Left Cubital Tunnel Release - Gray Cummins MD Date/Time: 03/20/24 06:39 Surgeon: Gary Cummins MD Pre Op Diagnosis: rt carpal tunnel syndrome, lft cubital tunnel synd Patient Data Age: 38 Gender: F Height: 1.65 m Weight: 87.8 kg Last Vital Signs Temp 36.3 C L 03/20/24 06:33 Pulse 71 03/20/24 06:33 Resp 14 03/20/24 06:33 BP 130/93 H 03/20/24 06:33 Pulse Ox 100 03/20/24 06:33 O2 Del Method Room Air 03/20/24 06:33 Allergies Allergy/AdvReac Type Severity Reaction Status Date / Time hydrocodone AdvReac Unknown Nausea and Verified 03/20/24 06:37 Vomiting Home Medications Medication Instructions Recorded Confirmed Type estradiol 1 mg/gram (0.1 %) 1 packet transdermal .COMPLEX 08/26/23 03/09/24 History transdermal gel packet Patient hx anesthesia problems: none Family hx anesthesia problems: none Results Review: All pre-operative results and documents have been reviewed as part of the pre- operative evaluation. [facility] Past Medical History Medical History (Updated 03/20/24 @ 06:40 by Jh Henriquez DO) Cubital tunnel syndrome, bilateral Endometriosis Surgical History Surgical History H/O: hysterectomy History of delivery Family History Family History Father Acute myocardial infarction Mother Acute myocardial infarction Heart disease Social History Social History (Updated 01/20/24 @ 08:40 by ZACK Gomez) Smoking packs per day: 0.5 Smoking cigarettes per day: 10.0 Years smoked: 8 Smoking pack-years: 4.00 Smoking status: Current every day smoker Tobacco type: cigarettes Second hand tobacco smoke exposure: No Alcohol intake: never Alcohol use details: SOCIALLY IN PAST Substance use: never Substance use type: does not use Do You Feel Safe in your Home?: Yes Lack of Transportation: No Lack of Food: Never True Current Housing: I Have Housing Concerned About Future Housing: No Difficulty Paying Gas/Electric Bills: No Difficulty Paying for Meds: No Currently Unemployed: No Education: High School Diploma/GED Difficulty w/ Childcare or Family Care: No Living arrangements: with family Additional living arrangements comments: and children Occupation/Education: occupation 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[employer] Gender identity (if verbalized by the patient): Female Spiritual care concerns: No Anes - Eval Final PreProcedure Day of Procedure 03/20/24 06:39 Patient weight: obese Heart: regular rate and rhythm Lungs: clear to auscultation Airway: Mallampati scale class II Neurological: alert and oriented Last oral intake: >/= 8 hours ASA classification: II Emergent: no Anesthetic plan: proceed Anesthesia type and monitoring: general LMA and standard monitoring Results Review: All pre-operative results and documents have been reviewed as part of the pre- operative evaluation. Informed Consent: The patient's anesthetic plan and its attendant risks and benefits were discussed with the patient/family/POA. Questions were solicited and answers provided to the satisfaction of the patient/family/POA.
--- NOTE | 2024-03-20 06:46 | WPDHPUPDATE1 ---
History and Physical Update Update Date/Time: 03/20/24 06:46 History and Physical has been reviewed, including an updated exam of the patient. There are NO changes in the patient's condition. Risks, benefits, and alternatives have been discussed and questions answered. Patient agrees to proceed with procedure.
[2024-03-20] MEDS: ceFAZolin 2 GM/D5W 50 ML 2 GM/50 ML BAG IVPB (07:22)
[2024-03-20] MEDS: LIDO 1%/EPINEPHRINE 1:100,000 20 ML VIAL INFILTRATE (07:40)
--- NOTE | 2024-03-20 08:14 | P.OP_ITS ---
Procedure Note - Detailed Date of Procedure 03/20/24 Pre-op Diagnosis RIGHT carpal tunnel syndrome, LEFt cubital tunnel synd Post-op Diagnosis Same Procedure Performed RIGHT Carpal Tunnel Release LEFT Cubital Tunnel Release Surgeon Gary Cummins MD Tool Programmer Sriram Schumacher Anesthesia General and MAC Indications Pain and Numbness Description of Procedure A general anesthetic was administered. I began with the left carpal tunnel. After sterile prep and drape, I injected the area of intended incision with 10ml of 1% lidocaine. A longitudinal incision was made in line with the ulnar boarder of the third finger. Dissection carried down to the fascia, the fascia split and the carpal ligament identified. The carpal ligament was released and the flexor retinaculum was released as well. The nerve was noted to be red purple in color and in continuity. The wound was irrigated, hemostasis was obtained and closed with 3-0 nylon. I then proceeded to the left cubital tunnel. Longitudinal incision made between the epicondylar region medially and the olecranon. Dissection gently carried down to the fascia in the ulnar nerve identified. He was released from the epicondylar region distally through the area of the cubital tunnel. The nerve was identified noted to be in continuity and completely released at this time. I flexed the elbow and straighten it and the elbow was stable in the groove. At this point the wound here gated hemostasis obtained and closed with 2-0 Vicryl and 3-0 Prolene. A sterile dressing was applied. Patient tolerated procedure well. Estimated Blood Loss 20 Drains No Packing No Pathology None sent Complications No immediate complications Condition Stable Disposition PACU [facility] Billing Surgery - Charge Forward: Surgery Billing ([id number] CTS [id number] Cubital Tunnel)
[2024-03-20] MEDS: traMADol HCL (*CRX) 50 MG TABLET PO (09:29)
== END 2024-03-20 10:00 | disposition home or self-care (01) ==
PROVIDERS: PCP Family Medicine; Visit Provider Orthopaedic Surgery
PROC: (CPT 64721; principal; 2024-03-20 07:30)
DX: G56.01 Carpal tunnel syndrome, right upper limb (principal); G56.22 Lesion of ulnar nerve, left upper limb; N80.9 Endometriosis, unspecified; F17.210 Nicotine dependence, cigarettes, uncomplicated; E66.9 Obesity, unspecified; Z68.32 Body mass index [BMI] 32.0-32.9, adult; Z98.890 Other specified postprocedural states; Z82.49 Family history of ischemic heart disease and other diseases of the circulatory system
CPT/HCPCS: 64721; 64718; A4565; A9270; J0690; J1100; J1885; J2003; J2004; J2250; J2405; J2704; J3010; J7120

== ENCOUNTER 2024-07-19 08:02 | Outpatient (CLI) | payer OTHER, BC, SELFPAY ==
--- OUTSIDE RECORDS SUMMARY | 2024-07-19 08:13 | XMS_ITS | Clinical Summary ---
Author Organization [facility] Address [address] [place] [address] Phone Care Team Providers Care Data Collection Technician Name Role Phone Glenroy Evans MD Primary Care Provider [phone] Allergies Active Allergy Reactions Criticality Noted Date Comments Amoxicillin Nausea and Vomiting Low 05/30/2009 Unclassified Drug Other (See Comments) 05/30/19 10 Clear tape = redness skin Medications No known medications Social History Tobacco Use Types Packs/Day Years Used Date Smoking Tobacco: Former Cigarettes 1 05/30/2005 - 03/30/2008 Alcohol Use Standard Drinks/Week Comments No 0 (1 standard drink = 0.6 oz pur e alcohol) Comments Unknown Sex and Gender Information Value Date Recorded Sex Assigned at Not on file Legal Sex 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 Gender Identity Not on file Sexual Orientation Not on file Last Filed Vital Signs Vital Sign Reading Time Taken Comments Blood Pressure - - Pulse - - Temperature - - Respiratory Rate - - Oxygen Saturation - - Inhaled Oxygen Concentration - - Weight 82.6 kg (182 lb) 05/30/2009 3:38 PM FRONT END WHEEL LOADER OPERATOR Height 165.1 cm (5' 5 ) 05/30/2009 3:38 PM FRONT END WHEEL LOADER OPERATOR Body Mass Index 30.29 05/30/2009 3:38 PM FRONT END WHEEL LOADER OPERATOR Plan of Treatment Health Maintenance Due Date Last Done Comments DTAP/TDAP/TD VACCINES (1 - Tdap) 2002 HEPATITIS B VACCINES (1 of 3 - 19+ 3-dose series) 2002 CERVICAL CANCER SCREENING 2013 BREAST CANCER SCREENING 2023 INFLUENZA VACCINE (#1) 2023 HPV VACCINES Aged Out No longer eligi ble based on patient's age to complete this topic Insurance Care Teams Data Collection Technician Relationship Specialty Start Date End Date Glenroy Evans MD [address] [place] [address] [place] [phone] PCP - General 06/05/09
--- OUTSIDE RECORDS SUMMARY | 2024-07-19 08:13 | XMS_ITS | Clinical Summary ---
Author Organization [facility] Address [facility] [place] [address] Care Team Providers Care School Lunch Monitor Name Role Phone Mirtha Vaca MD Primary Care Provider Sadaf Oseguera NP Unavailable Allergies Active Allergy Reactions Criticality Noted Date Comments Amoxicillin Nausea and Vomiting Low 05/30/2009 Medications VITO 0.1 MG/24HR patch 07/13/2023 Active Active Problems Problem Noted Date Diagnosed Date Eustachian tube dysfunction, bilateral 6 Overview (07/23/2023): Date Onset: 03/12/2016 Viral upper respiratory tract infection 03/12/20 16 Overview (07/23/2023): Date Onset: 03/12/2016 Depression 07/30/2011 Encounters Date Type Department Care Team Description 06/14/2024 7:13 AM HOME HEALTH ADMINISTRATOR - 06/14/2024 11:59 PM HOME HEALTH ADMINISTRATOR Hospital Encounter [address] [place] [address] Angel Stewart, ANP- Discharge Disposition: Home or Self Care (Routine Discharge) 06/14/2024 Travel from Last 3 Months Immunizations Name Administration Dates Next Due Dtp (Generic) 12/29/1988, 5,1983,1983,0 1983 H1N1 Injectable 2009 Influenza 03/07/2009 Hepatitis B Pediatric 06/11/1998,01/17/1998,11/15 Hib (Generic) 07/21/1985 MMR (MMRII) 10/22/1992,09/16/1984 Polio Opv (Generic) 12/29/1988, 5,1983,1983,0 1983 Td (TDVAX) 12/07/1997 Family History Medical History Relation Comments Breast Cancer Maternal Aunt Relation Status Comments Maternal Aunt Social History Tobacco Use Types Packs/Day Years Used Date Smoking Tobacco: Never Assessed Comments No Sex and Gender Information Value Date Recorded Sex Assigned at Female 06/07/2024 9:41 AM HOME HEALTH ADMINISTRATOR Legal Sex Female 6:57 PM CDT Gender Identity Not on file Sexual Orientation Not on file Last Filed Vital Signs Vital Sign Reading Time Taken Comments Blood Pressure 140/81 12/31/2021 1:39 PM CDT Pulse 85 12/31/2021 1:39 PM CDT Temperature 36.4 C (97.6 F) 12/31/2021 1:39 PM CDT Respiratory Rate 18 12/31/2021 1:39 PM CDT Oxygen Saturation 99% 12/31/2021 1:39 PM CDT Inhaled Oxygen Concentration - - Weight 84.4 kg (186 lb) 12/31/2021 1:39 PM CDT Height 165.1 cm (5' 5 ) 12/31/2021 1:39 PM CDT Body Mass Index 30.95 12/31/2021 1:39 PM CDT Plan of Treatment Health Maintenance Due Date Last Done Comments Cervical Cancer Screening Pap Smear (Age 30 to 64) Every 3 Years 1983 Annual Physical 1986 DTaP, Tdap and Td Vaccines (6 - Tdap) 12/08/1997 12/07/1997, 12/29/1988, 10/18/1984, Additional history exists Hepatitis C 2001 Cervical Cancer Screening Pap with HPV Testing (Age 30 to 64) Every 5 Years 2013 Cervical Cancer Screening with HPV 2013 COVID-19 Vaccine ( season) 2024 Influenza Adult (#1) 2024 03/07/2009 Mammogram Screening 06/14/2026 06/14/2024 Hepatitis B Vaccines Completed 06/11/1998, 01/17/1998, 12/07/1997 HPV Vaccines Aged Out No longer eligi ble based on patient's age to complete this topic Meningococcal B Vaccine Aged Out No l onger eligible based on patient's age to complete this topic Meningococcal Vaccine Aged Out No rosalinda adriana eligible based on patient's age to complete this topic Pneumococcal Vaccine: Pediatrics (0 to 5 Years) and At-Risk Patients (6 to 64 Years) Aged Out No longer eligible based on patient's age to complete this topic RSV Immunizations Under 20 Months Aged Out No longer eligible based on patient's age to complete this topic Procedures Procedure Name Priority Date/Time Associated Diagnosis Comments MG SCREENING W TRACY PINKY DIGI Routine 06/14/2024 7:43 AM HOME HEALTH ADMINISTRATOR Encounter for screening mammogram for malignant neoplasm of breast from Last 3 Months Results * MG SCREENING W TRACY PINKY DIGI (06/14/2024 7:43 AM HOME HEALTH ADMINISTRATOR) Anatomical Region Laterality Modality Breast Bilateral Mammography 06/14/2024 8:13 AM HOME HEALTH ADMINISTRATOR Impressions 06/14/2024 8:17 AM HOME HEALTH ADMINISTRATOR ===== IMPRESSION: ===== 1. No mammographic evidence of malignancy Assessment: ACR BI-RADS 2 - BENIGN FINDING(S) Recommendation: 1:Routine Screening Bilateral Comments: Ordered By: ANGEL STEWART Interpreted By: Buck Al, 06/14/2024 8:13 AM Narrative 06/14/2024 8:17 AM HOME HEALTH ADMINISTRATOR [address] [place] [address] EXAMINATION: Digital bilateral screening mammogram with 3-D tomosynthesis EXAM DATE/TIME: 06/14/2024 7:25 AM REASON FOR EXAM: Screening Mammogram Breast carcinoma in maternal aunt at age 60 COMPARISON: Baseline exam Technique: Digital screening mammography of both breasts was performed in addition to 3-D Tomosynthesis technique. This study was read with the assistance of a computer-aided detection system. Tissue density: There are scattered areas of fibroglandular density. Findings: There is no focal asymmetry, dominant mass lesion, area of skin thickening, or cluster of suspicious appearing calcifications in either breast to suggest malignancy. Benign lymph node in upper outer quadrant of the right breast Angel Stewart ANP-BC MAMMO Final R esult from Last 3 Months Insurance ALLIED [place] [address] [place] [address] [facility] Care Teams School Lunch Monitor Relationship Specialty Start Date End Date Mirtha Vaca MD [address] [place], [place] [phone] PCP - General FAMILY PRACTICE 12/31/21 Sadaf Oseguera NP [address] [place] [address] NURSE PRACTITIONER 10/13/22
--- OUTSIDE RECORDS SUMMARY | 2024-07-19 08:13 | XMS_ITS | Clinical Summary ---
Author Organization [facility] Address [address] [place] [address] Care Team Providers Care Classroom Monitor Name Role Phone Mirtha Vaca MD Primary Care Provider Social History Tobacco Use Types Packs/Day Years Used Date Smoking Tobacco: Never Assessed Personal Safety Answer Date Recorded Getting School Help Needed Not on file 07/31 Comments Unknown Sex and Gender Information Value Date Recorded Sex Assigned at Not on file Legal Sex Female 4:02 PM CDT Gender Identity Not on file Sexual Orientation Not on file Plan of Treatment Not on file Care Teams Classroom Monitor Relationship Specialty Start Date End Date Mirtha Vaca MD [address] [place] [phone] PCP - General Family Medicine 02/16/22
--- OUTSIDE RECORDS SUMMARY | 2024-07-19 08:13 | XMS_ITS | Referral Summary ---
Author Organization [facility] Address [address] [place] [address] Care Team Providers Care Air Compressor Engineer Name Role Phone Mirtha Vaca MD Primary [...] of Treatment Not on file Care Teams Air Compressor Engineer Relationship Specialty Start Date End Date Mirtha Vaca MD [address] [place] [phone] PCP - General Family Medicine 02/16/22
== END 2024-07-19 08:03 | disposition home or self-care (01) ==
LOC: ANHSURGERY 08:06
PROVIDERS: PCP Family Medicine; Visit Provider Obstetrics & Gynecology
DX: R10.2 Pelvic and perineal pain (principal)
CPT/HCPCS: 36415; 86850; 86900; 86901

== ENCOUNTER 2024-07-21 01:45 | Day surgery (SDC) | payer OTHER, BC, SELFPAY ==
[2024-07-13 11:20] VITALS: BMI 31.6
--- NOTE | 2024-07-13 11:21 | PC.NURSE ---
Report to the Outpatient Waiting Room, entrance under the green pavilion located off [facility], at time _0600_ on date _[id number]_. Planned Procedure Time: _0730_.? Time changes happen often and if your time is changed the preop area will call you the afternoon before. - You and your visitor will be asked to self-screen and do not enter if you have any COVID symptoms. Please call surgeon if you need to reschedule. - A mask is optional within the hospital at this time. Patients may have clear liquids (water, carbonated beverages, clear teas, apple juice) until 3 hours prior to surgery with a maximum of 20 ounces. - No food from midnight until time of surgery and no smoking, or chewing tobacco (or any form of nicotine). No chewing gum, candy or mints. Take only the following medications with a SIP of water on the morning of surgery: ___None___ DO NOT STOP ANY OF YOUR OTHER PRESCRIPTION MEDICATIONS PRIOR TO SURGERY EXCEPT THE FOLLOWING Hold all vitamins and supplements for 3 days per anesthesiologist. Medications to discontinue per physician Date to take last dose Please no make-up, nail azeri, hairspray, perfume, deodorant, or body powder the day of surgery.? No jewelry (including any body piercings) or valuables the day of surgery, leave them at home.? Please take a shower or bath the night before, or the morning of, surgery with an antibacterial soap.? Wear comfortable, loose fitting clothing.? - Jewelry must be removed prior to entering the operating room.? Rings and piercings that are not removed may be cut off. - The hospital will not accept responsibility for valuables.? - Please leave all valuables, including medications, at home the day of surgery. If you are going home after surgery, a licensed mule driver must drive you home.? - NO public transportation without another adult if you receive anesthesia. - We recommend that an adult stay with you for 24 hours following discharge. - We also recommend that you do not drive, make important decision, drink alcoholic beverages, or take any drugs that were not prescribed by your health care provider for at least 24 hours after your discharge time. Follow any additional instructions given to you from your surgeon. Telephone instructions given to __Norm__and asked if any additional questions and then verbalized understanding. Patient advised to call surgeon office or pre surgery nurse liaison [phone] if any additional questions.
--- NOTE | 2024-07-19 06:58 | PM.IMHP ---
H&P: HPI History of Present Illness Date/Time: 07/19/24 06:58 Chief Complaint: Pelvic pain history of endometriosis Narrative: 39 year 2 para 2 status post hysterectomy admitted for laparoscopy secondary to pelvic pain she has pain dyspareunia and has been unable to have intercourse. Ultrasound was unhelpful. She is offered laparoscopy with treatment as needed risks and benefits including exclusive of , aspiration bleeding, transfusion, perforation injury to bowel, bladder, ureters, or other internal organs with need for open laparotomy. She received the [employer] handout entitled laparoscopy. She had all questions answered. She asked to proceed. Review of Systems Musculoskeletal: Musculoskeletal: Reports arthralgias, Reports joint swelling and Reports stiffness PMFSH Past Medical History Medical History Smoker Obesity Endometriosis Cubital tunnel syndrome, bilateral Surgical History Surgical History H/O: hysterectomy History of delivery Family History Family History Father Acute myocardial infarction Mother Acute myocardial infarction Heart disease Social History Social History Smoking packs per day: 0.5 Smoking cigarettes per day: 10.0 Years smoked: 8 Smoking pack-years: 4.00 Smoking status: Current every day smoker Tobacco type: cigarettes Second hand tobacco smoke exposure: No Alcohol intake: never Alcohol use details: SOCIALLY IN PAST Substance use: never Substance use type: does not use Do You Feel Safe in your Home?: Yes Lack of Transportation: No Lack of Food: Never True Current Housing: I Have Housing Concerned About Future Housing: No Difficulty Paying Gas/Electric Bills: No Difficulty Paying for Meds: No Currently Unemployed: No Education: Grade School Difficulty w/ Childcare or Family Care: No Living arrangements: with family Additional living arrangements comments: and children Occupation/Education: occupation 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[employer] Gender identity (if verbalized by the patient): Female Spiritual care concerns: No Meds Home Medications and Allergies Home Medications ?Medication ?Instructions ?Recorded ?Confirmed ?Type estradiol 0.1 mg/24 hr semiweekly 1 patch topical .COMPLEX 07/13/24 07/13/24 History transdermal patch Allergies Allergy/AdvReac Type Severity Reaction Status Date / Time hydrocodone AdvReac Unknown Nausea and Verified 07/13/24 11:16 Vomiting Exam Const: General: cooperative, comfortable and obese Orientation/consciousness: oriented to person, oriented to place and oriented to time HENMT: Head: normal to inspection Resp: Effort & Inspection: normal respiratory effort Cardio: Rate: regular rate Rhythm: regular rhythm Heart sounds: S1 normal heart sound present and S2 normal heart sound present GI: Inspection: normal to inspection Auscultation: normal bowel sounds : External Female Exam: normal external appearance Speculum Exam - Vagina: normal appearance of the vagina Speculum Exam - Cervix: Cervix absent Bimanual exam- vagina & uterus: other (Uterus absent) Bimanual Exam- Adnexa, other: tender bilaterally Assessment and Plan Assessment and plan (1) Pelvic pain: Code(s): R10.2 - Pelvic and perineal pain Status: Acute (2) Dyspareunia: Status: Acute Plan Proceed with diagnostic laparoscopy
--- NOTE | 2024-07-20 12:49 | WPDANESEPPF ---
Anes - Initial Pre Proc Eval Procedure: Operation Date: 07/21/24 07:30 Proposed Procedures p Diagnostic Laparoscopy - Luis Rivas MD Date/Time: 07/20/24 12:49 Surgeon: Luis Rivas MD Pre Op Diagnosis: Pelvic Pain, Dyspareunia, Endometriosis Patient Data Age: 39 Gender: F Height: 1.65 m Weight: 86.4 kg Allergies Allergy/AdvReac Type Severity Reaction Status Date / Time hydrocodone AdvReac Unknown Nausea and Verified 07/21/24 07:03 Vomiting Home Medications ?Medication ?Instructions ?Recorded ?Confirmed ?Type estradiol 0.1 mg/24 hr semiweekly 1 patch topical .COMPLEX 07/13/24 07/13/24 History transdermal patch oxycodone-acetaminophen 5 mg-325 1 tablet PO Q4H PRN pain #20 tabs 07/21/24 Rx mg tablet (Endocet) Patient hx anesthesia problems: none Family hx anesthesia problems: none Results Review: All pre-operative results and documents have been reviewed as part of the pre-operative evaluation. [facility] Past Medical History Medical History Smoker Obesity Endometriosis Cubital tunnel syndrome, bilateral Surgical History Surgical History H/O: hysterectomy History of delivery Family History Family History Father Acute myocardial infarction Mother Acute myocardial infarction Heart disease Social History Social History Smoking packs per day: 0.5 Smoking cigarettes per day: 10.0 Years smoked: 8 Smoking pack-years: 4.00 Smoking status: Current every day smoker Tobacco type: cigarettes Second hand tobacco smoke exposure: No Alcohol intake: never Alcohol use details: SOCIALLY IN PAST Substance use: never Substance use type: does not use Do You Feel Safe in your Home?: Yes Lack of Transportation: No Lack of Food: Never True Current Housing: I Have Housing Concerned About Future Housing: No Difficulty Paying Gas/Electric Bills: No Difficulty Paying for Meds: No Currently Unemployed: No Education: Grade School Difficulty w/ Childcare or Family Care: No Living arrangements: with family Additional living arrangements comments: and children Occupation/Education: occupation 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 Informed Consent: The patient's anesthetic plan and its attendant risks and benefits were discussed with the patient/family/POA. Questions were solicited and answers provided to the satisfaction of the patient/family/POA.
[2024-07-21] VITALS (7 sets, daily range): BP systolic 107–127; BP diastolic 52–87; PULSE 81–115; RESP 12–16; TEMP 36.3–36.8; O2SAT 99–100
--- OUTSIDE RECORDS SUMMARY | 2024-07-21 01:57 | XMS_ITS | Clinical Summary ---
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 Gender Identity Not on file Sexual Orientation Not on file Last Filed Vital Signs Vital Sign Reading Time Taken Comments Blood Pressure - - Pulse - - Temperature - - Respiratory Rate - - Oxygen Saturation - - Inhaled Oxygen Concentration - - Weight 82.6 kg (182 lb) 05/30/2009 3:38 PM HONING MACHINE OPERATOR PRODUCTION Height 165.1 cm (5' 5 ) 05/30/2009 3:38 PM HONING MACHINE OPERATOR PRODUCTION Body Mass Index 30.29 05/30/2009 3:38 PM HONING MACHINE OPERATOR PRODUCTION Plan of Treatment Health Maintenance Due Date Last Done Comments DTAP/TDAP/TD VACCINES (1 - Tdap) 2002 HEPATITIS B VACCINES (1 of 3 - 19+ 3-dose series) 2002 CERVICAL CANCER SCREENING 2013 BREAST CANCER SCREENING 2023 INFLUENZA VACCINE (#1) 2023 HPV VACCINES Aged Out No longer eligi ble based on patient's age to complete this topic Insurance Care Teams Office Services Clerk Relationship Specialty Start Date End Date Glenroy Evans MD [address] [place] [address] [place] [phone] PCP - General 06/05/09
--- OUTSIDE RECORDS SUMMARY | 2024-07-21 01:57 | XMS_ITS | Clinical Summary ---
Author Organization [facility] Address [facility] [place] [address] Care Team Providers Care Director Database Name Role Phone Mirtha Vaca MD Primary Care Provider Sadaf Oseguera NP Unavailable [phone] Allergies Active Allergy Reactions Criticality Noted Date Comments Amoxicillin Nausea and Vomiting Low 05/30/2009 Medications VITO 0.1 MG/24HR patch 07/13/2023 Active Active Problems Problem Noted Date Diagnosed Date Eustachian tube dysfunction, bilateral 6 Overview (07/23/2023): Date Onset: 03/12/2016 Viral upper respiratory tract infection 03/12/20 16 Overview (07/23/2023): Date Onset: 03/12/2016 Depression 07/30/2011 Encounters Date Type Department Care Team Description 06/14/2024 7:13 AM ARCHEOLOGIST CLASSICAL - 06/14/2024 11:59 PM ARCHEOLOGIST CLASSICAL Hospital Encounter [address] [place] [address] Angel Stewart, ANP- Discharge Disposition: Home or [...] Sex Assigned at Female 06/07/2024 9:41 AM ARCHEOLOGIST CLASSICAL Legal Sex Female 6:57 PM CDT Gender [...] TRACY PINKY DIGI Routine 06/14/2024 7:43 AM ARCHEOLOGIST CLASSICAL Encounter for screening mammogram for malignant neoplasm of breast from Last 3 Months Results * MG SCREENING W TRACY PINKY DIGI (06/14/2024 7:43 AM ARCHEOLOGIST CLASSICAL) Anatomical Region Laterality Modality Breast Bilateral Mammography 06/14/2024 8:13 AM ARCHEOLOGIST CLASSICAL Impressions 06/14/2024 8:17 AM ARCHEOLOGIST CLASSICAL ===== IMPRESSION: ===== 1. No mammographic evidence of malignancy Assessment: ACR BI-RADS 2 - BENIGN FINDING(S) Recommendation: 1:Routine Screening Bilateral Comments: Ordered By: ANGEL STEWART Interpreted By: Buck Al, 06/14/2024 8:13 AM Narrative 06/14/2024 8:17 AM ARCHEOLOGIST CLASSICAL [address] [place] [address] EXAMINATION: Digital bilateral screening mammogram with 3-D [...] from Last 3 Months Insurance ALLIED BENEFITS [address] [address] [facility] Care Teams Director Database Relationship Specialty Start Date End Date Mirtha Vaca MD [address] [place], [place] [phone] PCP - General FAMILY PRACTICE 12/31/21 Sadaf Oseguera NP [address] [place] [address] NURSE PRACTITIONER 10/13/22
--- NOTE | 2024-07-21 06:27 | WPDHPUPDATE1 ---
History and Physical Update Update Date/Time: 07/21/24 06:27 History and Physical has been reviewed, including an updated exam of the patient. There are NO changes in the patient's condition. Risks, benefits, and alternatives have been discussed and questions answered. Patient agrees to proceed with procedure.
[2024-07-21] MEDS: KETOROLAC 15 MG/ML VIAL (*BKC) IV PUSH (06:45)
[2024-07-21] MEDS: ACETAMINOPHEN 500 MG TABLET 1000 MG PO (06:45)
[2024-07-21] MEDS: LACTATED RINGERS 1,000 ML 30 ML IV CONT (06:45)
--- NOTE | 2024-07-21 07:53 | P.OP_ITS ---
Procedure Note - Detailed Date of Procedure 07/21/24 Pre-op Diagnosis Pelvic Pain, Dyspareunia, Endometriosis Post-op Diagnosis Same Procedure Performed Laparoscopy with lysis of adhesions and destruction of endometriosis Surgeon Luis Rivas MD Anesthesia General Indications And this is a 39-year-old female status post robotic hysterectomy and bilateral salpingo-oophorectomy with pelvic pain and history of endometriosis Findings Uterus ovaries and tubes were surgically absent. Small powder burn endometriosis areas were seen bilaterally. Normal-appearing appendix. Normal- appearing liver Description of Procedure The patient was prepped draped in the normal sterile fashion placed in the dorsal lithotomy position. Under excellent general trach anesthesia weighted speculum placed in posterior fornix vagina. Sponge stick was placed in the vagina. And the bladder was emptied of clear urine. The weighted speculum was removed the gloves were changed. Supraumbilical incision made the Veress needle passed in the abdomen. Abdomen filled with CO2 gas 15mmHg. The 5mm trocar advanced under direct visualization with the operative scope and no injury seen. Patient placed in Trendelenburg an d a suprapubic incision made. The 5mm trocar advanced under direct visualization assuring no injury. The above findings were seen. The areas of endometriosis were point cauterized along each uterosacral ligament with the at 35 w per 2nd with monopolar cautery. Irrigation undertaken until clear. Some adhesions were seen on the left and these were sharply dissected without difficulty relieving the colon. The appendix and liver edge appeared within normal limits. Other out of bed around but no other abnormalities were seen. The instruments withdrawn and the gas removed from the abdomen the trocars removed the incisions closed with 4-0 Monocryl and glue sponge stick removed from the vagina the patient was awakened. She went recovery in satisfactory condition. All sponge, needle, instrument counts were correct. There were no immediate complications Estimated Blood Loss 5 Drains No Packing No Pathology None sent Complications No immediate complications Condition Stable Disposition PACU
[2024-07-21] MEDS: SCOPOLAMINE 1 MG PATCH 1 PATCH TRANSDERM (08:28)
[2024-07-21] MEDS: oxyCODONE HCL (*CRX) 5 MG TAB IR PO (08:40)
== END 2024-07-21 09:05 | disposition home or self-care (01) ==
PROVIDERS: PCP Family Medicine; Visit Provider Obstetrics & Gynecology
PROC: (CPT 49320; principal; 2024-07-21 07:30)
DX: N80.3C3 Endometriosis of bilateral uterosacral ligament(s), unspecified depth (principal); N73.6 Female pelvic peritoneal adhesions (postinfective); R10.2 Pelvic and perineal pain; N94.10 Unspecified dyspareunia; F17.210 Nicotine dependence, cigarettes, uncomplicated; E66.9 Obesity, unspecified; Z68.31 Body mass index [BMI] 31.0-31.9, adult
CPT/HCPCS: 58662; A9270; J1100; J1885; J2003; J2250; J2405; J2704; J3010; J7030; J7120; Q9968